=== PATIENT | male | born 2000 | race African-American/Black ===

== ENCOUNTER 2020-08-05 11:50 | Emergency (ER) | payer SELFPAY ==
[~2020-08-05] VITALS: Ht 180.3 cm; Wt 61.2 kg
[2020-08-05 13:22] VITALS: BP 132/85
== END 2020-08-05 15:58 | disposition home or self-care (01) ==
LOC: ER 11:50
DX: U07.1 COVID-19 (principal); J20.9 Acute bronchitis, unspecified
CPT/HCPCS: 36415; 71045; 87426; 93005